=== PATIENT | female | born 1975 | race Caucasian/White ===

== ENCOUNTER 2017-12-20 18:07 | Emergency (ER) | payer MEDICAID ==
[~2017-12-20] VITALS: Ht 154.9 cm; Wt 66.0 kg
[2017-12-20] MEDS ORDERED: FLUORESCEIN SODIUM 1MG/STRIP OP ONE (23:00)
[2017-12-20] MEDS ORDERED: TETRACAINE 0.5% OPHTH DROPS 4ML OP ONE (23:00)
[2017-12-20] MEDS ORDERED: IBUPROFEN 600MG TABLET PO ONE (23:15)
[2017-12-21 00:28] VITALS: BP 130/68
== END 2017-12-21 00:29 | disposition home or self-care (01) ==
LOC: ER 18:07
DX: H57.8 Other specified disorders of eye and adnexa (principal); R03.0 Elevated blood-pressure reading, without diagnosis of hypertension
CPT/HCPCS: 99283